=== PATIENT | female | born 1975 | race Caucasian/White ===

== ENCOUNTER → 2022-11-13 09:00 | Outpatient (BNV) | payer OTHER, SELFPAY | PROVIDERS: Visit Provider Psychiatry & Neurology Psychiatry | DX: F33.9 Major depressive disorder, recurrent, unspecified (principal) | CPT/HCPCS: 99212 ==

== ENCOUNTER 2022-11-17 08:30 | Outpatient (RCR) | payer OTHER, SELFPAY ==
--- NOTE | 2022-11-05 11:11 | PC.ADMIT ---
Patient is a 47 year old female who was referred to PHP by her prescriber Vickie George APRN d/t increased depression with passive SI (Patient denied plan or intent to kill herself) and increased anxiety. She reports having difficulty working at this time d/t her symptoms. She reports she works with her brother in law who is flexible with her work hours which have been reduced while she is struggling with depressive sxs. Patient given a copy of her safety plan if needed and I reviewed the plan with her. Patient's medications reconciled with patient and patient's pharmacy. she reports taking medications as prescribed.
[2022-11-05 11:24] VITALS: BP 119/85; PULSE 60; TEMP 36.8
[2022-11-05 11:25] VITALS: BMI 25.1
--- NOTE | 2022-11-05 14:59 | HO.PHP ---
Clients case was reviewed and opened today in treatment team.
--- NOTE | 2022-11-05 21:04 | HO.PS.ADMBH ---
HPI Date of Service: 11/05/22 Chief Complaint: MDD Sources of Information: patient interviewed, chart reviewed and crisis/core team assessment reviewed Additional Sources of Information: 47 yo single woman referred by outpatient provider (HUBERT George ) for treatmetn of depression, passive SI, snf shoulder pain and history of body dysmorphia HPI Healthcare Proxy: No Guardianship: No Medical Problems Affecting Mental Status: Yes Narrative: shoulder pain with recent surgery and many medical appt over last 2-3 years; struggling to cope with chronic pain; depression worsening over past few months and increased focus on somatic complaints. recent SI trila of wellbutrin but worsened agitation. Past Psychiatric History: Pt finished TMS finished TMS 05/19/2019; started seeing Lakesha Garza for therapy and sees weekly. History of depression and with SI - Tomás Sanders. Center 01/16-01/22 2019 [facility] PHP - 3 weeks tx At age 28, serious suicide attempt in 2006 had a small amount of alcohol and came home and took wellbutrin and celexa- felt lonely, has chronic suicidal ideation Was off meds for a while but In 2016 mother passed from abdominal aortic aneurysm 73 years old. and pt has been struggling again since then Pt went to se PCP 2018 - started with Prozaneela (on for months) Saw psychiatrist at [facility] - added Mariely Has been dealing with depression since age 20, chronic SI since 20, never felt comfortable in own skin; History of over-dose on Wellbutrin and celexa in 2006 took 250 pills -had seizures and vomiting fell and brother heard her fall. adm [facility] for input psych age 20 shoulder impingement surgery 2022 [facility] Medical History (Updated 11/05/22 @ 21:11 by Brittany George APRN) Degenerative disc disease, cervical Surgical History (Updated 11/05/22 @ 10:32 by Giovanna Benites RN) History of discectomy Family History: supportive siblings, very involved; mother 2016 Social History: lives alone, works as bookeeper Substance History: none Trauma History: none known Diagnostics Vital Signs (24Hr): Vital Signs - 24 hr 11/05/22 11:24 Temperature 98.2 F Pulse Rate 60 Blood Pressure 119/85 BMI result Body Mass Index 25.1 Meds/Allergies Meds Home Medications Medication Instructions Recorded Confirmed Type cholecalciferol (vitamin D3) 25 25 mcg PO DAILY 11/05/22 11/05/22 History mcg (1,000 unit) capsule (Vitamin D3) hydrocodone 10 mg-acetaminophen 1 tab PO BID PRN Pain 11/05/22 11/05/22 History 325 mg tablet lamotrigine 200 mg tablet 200 mg PO DAILY 11/05/22 11/05/22 History mirtazapine 7.5 mg tablet 3.75 - 7.5 mg PO BEDTIME PRN 11/05/22 11/05/22 History Insomnia sertraline 100 mg tablet 200 mg PO DAILY 11/05/22 11/05/22 History brexpiprazole 0.25 mg tablet 0.25 mg PO DAILY 11/13/22 11/13/22 History (Rexulti) Allergies Allergies Allergy/AdvReac Type Severity Reaction Status Date / Time No Known Allergies Allergy Verified 11/09/22 09:10 [No Known Allergies*] Mental Status Exam Mental Status Exam Patient Appearance: Well Grooomed and Appropriate Patient Orientation: Person, Place, Time and Situation Level of Consciousness: Awake Patient Behavior: Appropriate and Anxious Mood Description: Anxious and Sad Affect Description: Anxious and Sad Patient Cognition Impaired: No Ability to Follow Directions: Excellent Speech Pattern: Clear, Appropriate and Coherent Memory Description: Intact Hallucinations: None Delusions: Not Present Thought Process: Distracted and Goal Oriented Thought Content: positive for Goal Oriented and positive for Hypochondriasis (possible chronic pain in shoulder part of body dysmorphia symptoms- pain unrelenting despite many medical interventions) Depressive Symptoms: Increased Anxiety, Diff. Making Decisions, Muscle Tension, Difficulty Sleeping, Muscle Pain, Crying Spells, Feelings of Worthlessness, Feelings of Guilt, Unhappiness, Thoughts of /Suicide, Low Self Esteem, Loss of Energy and Difficulty Concentrating Judgement: Fair Telehealth Telehealth Location of provider rendering services: other Location of patient: other ([facility] ) Patient Identification confirmed using: Name, : Yes Telehealth method: video Patient verbally consented to treatment: Yes Patient verbally consented to billing insurance company: Yes Patient informed of any privacy concerns related to visit: Yes Minutes spent on Phone/Video with Pt.: 30 Assessment & Plan Assessment & Plan (1) Major depressive disorder, recurrent episode with anxious distress: Status: Acute Code(s): F33.9 - Major depressive disorder, recurrent, unspecified Assessment and Plan: 47 yo single woman with hsitory of depression, body dysmorphia, and suicide attempt in 2017 Plan: admit to [facility]' group treatmetn per protocol add rexulti 0.25 mg daily (2) Body dysmorphic disorder: Status: Acute Code(s): F45.22 - Body dysmorphic disorder Plan 47 yo single woman with history of depression, body dimorphic syndrome, and suicide attempt in 2016 Plan: admit to ' group treatment per protocol add rexulti 0.25 mg daily pt would benefit from learning coping skills to manage emotions, increase social support and may need new therpaist as her current therapist nearing skilled nursing Patient educated on: diagnosis, medication risk/benefits and therapeutic strategies Informed Consent: understands and further education needed Reason for continued partial hosp. stay Substantial Risk for: harm to self, inability to function and rapid decompensation Certification I certify that partial hospital treatment is medically necessary due to the symptoms and problems resulting from the patient's mental illness and the failure to treat the patient at the partial hospital level of care would likely result in the patient requiring inpatient psychiatric care which could not be prevented at a less intensive level of care. Time Spent With Patient Time: Total time managing care of this patient today __55__ minutes.
--- NOTE | 2022-11-09 15:16 | HO.PHP ---
[facility] staff reached out to Leeanne's OP therapist, David Garza, and left a VM informing her that Leeanne has been actively engaged in groups and utilizing the program appropriately. [facility] staff informed David of Leeanne's tenative discharge date which is November 18, 2022. [facility] staff encouraged David to reach out if she has any further questions.
--- NOTE | 2022-11-13 12:08 | HO.PHPPROGNO ---
Subjective Subjective Date of Service: 11/13/22 Reason For Visit: MDD Healthcare Proxy: No Guardianship: No Medical Problems Affecting Mental Status: Yes (Chronic pain) Interim History: Leeanne is seen for follow-up as part of her partial hospital program. She has been dealing with chronic depression since age 20 but recently, in the past 2 years she has been dealing with chronic pain in her left shoulder with 2 surgeries on cervical discs with no improvement. She has a hard time dealing with chronic pain and has been having negative thinking and that is what led to coming to the partial program. She denies any current active suicidal ideations but has had has been a serious overdose in 2005. She does have a prescriber and therapist whom she follows through with on a regular basis. Currently she is on Lamictal 200 mg daily and Zoloft 200 mg daily with moderate benefits. Recently her prescriber ordered Rexulti as an adjunctive medication but she was informed that it costs 150 dollars which she is not sure whether she wants to do or not. She is also learning about ketamine. No complaints or side effects with her current medications. No changes were made Medication Compliance: Yes Side effects from medications: No Attending Groups: Yes Review of Systems Review of Systems Except for chronic shoulder pain Yes all other systems are reviewed and are negative Mental Status Exam Mental Status Exam Narrative: In today's visit she is alert, oriented and pleasant. Normal speech. Good eye contact. Affect is appropriate and varied. No signs of psychosis. No active suicidal or homicidal ideations. She does have some negative thinking in relation to her chronic pain. Cognitively is intact. Judgment is intact Diagnostics Vital Signs (24Hr): BMI result Body Mass Index 25.1 Assessment & Plan Assessment & Plan (1) Major depressive disorder, recurrent episode with anxious distress: Status: Acute Code(s): F33.9 - Major depressive disorder, recurrent, unspecified Plan Continue current to medications. She will pursue adjunctive options with her prescriber Patient educated on: diagnosis and medication risk/benefits Certification I certify that partial hospital treatment is medically necessary due to the symptoms and problems resulting from the patient's mental illness and the failure to treat the patient at the partial hospital level of care would likely result in the patient requiring inpatient psychiatric care which could not be prevented at a less intensive level of care. Total time managing care of this patient today ____ minutes. Discharge Plan Discharge Attending provider: Forrest Sprague Medications: No Action lamotrigine 200 mg tablet 200 mg PO DAILY Rx Instructions: Patient takes at HS. sertraline 100 mg tablet 200 mg PO DAILY Rx Instructions: Patient takes at HS. hydrocodone-acetaminophen 10-325 mg Tablet 1 tab PO BID PRN (Reason: Pain) cholecalciferol (vitamin D3) [Vitamin D3] 25 mcg (1,000 unit) Capsule 25 mcg PO DAILY mirtazapine 7.5 mg tablet 3.75 - 7.5 mg PO BEDTIME PRN (Reason: Insomnia) Rx Instructions: Take 1/2 to 1 tab Q HS PRN Rexulti 0.25 mg Tablet 0.25 mg PO DAILY Stand Alone Forms: Patient Portal Discharge page
--- NOTE | 2022-11-16 14:30 | HO.PHP ---
Leeanne explored with [facility] staff if she could switch to half days. PHP staff informed her that she would have to see if her insurance company accepts half days. Leeanne was receptive. [facility] staff followed up with Leeanne and informed her that her insurance does not allow for half days and assessed why she was seeking that. Leeanne noted feeling stressed out with things she has to take care of outside of the program and feels as though she has gotten everything she needs at this time. Leeanne asked if she could discontinue services tomorrow 11/17/2022 opposed to 11/18/2022. [facility] staff asked Leeanne if she felt she was able to access everything she came to the program for. Leeanne disclosed that she did and informed her that she can continue with her OP therapist and psychiatrist. [facility] staff was receptive and asked Leeanne if she was able to find another OP therapist that will focus on BDD. Leeanne mentioned she hasn't and noted that she doesn't need a referral for that at this time was just seeking out resources of providers in the area. [facility] staff was receptive and informed her that she will provided her with individuals who take her insurance so she has those resources to contact when ready. Leeanne was in agreement. [facility] staff provided Leeanne with the resources 30 minutes later.
--- NOTE | 2022-11-17 11:35 | HO.PHPPROGNO ---
Subjective Subjective Date of Service: 11/17/22 Reason For Visit: MDD Healthcare Proxy: No Guardianship: No Medical Problems Affecting Mental Status: No Interim History: Leeanne is seen today for follow-up. I had seen her on 11/13. Today is her last day of treatment at [facility]. She states that she is doing much better, has gained some more tools to cope and has more of a positive perspective on things. She continues on her Zoloft and Lamictal but because of the expense she did not fill the prescription for Rexulti. She will see Vickie Rousseau who is her outside provider next week. She is also interested in pursuing possible ketamine treatment. No complaints or side effects. No SI. Medication Compliance: Yes Review of Systems Review of Systems Shoulder pain/ L Yes all other systems are reviewed and are negative Mental Status Exam Mental Status Exam Narrative: In today's visit she is alert, oriented and pleasant. Normal speech. Good eye contact. Affect is appropriate and varied. No signs of psychosis. No active suicidal or homicidal ideations. She does have some negative thinking in relation to her chronic pain. Cognitively is intact. Judgment is intact Diagnostics Vital Signs (24Hr): BMI result Body Mass Index 25.1 Assessment & Plan Assessment & Plan (1) Major depressive disorder, recurrent episode with anxious distress: Status: Acute Code(s): F33.9 - Major depressive disorder, recurrent, unspecified Plan Continue current regimen of Zoloft and Lamictal. Patient is discharging today Patient educated on: diagnosis and medication risk/benefits Certification I certify that partial hospital treatment is medically necessary due to the symptoms and problems resulting from the patient's mental illness and the failure to treat the patient at the partial hospital level of care would likely result in the patient requiring inpatient psychiatric care which could not be prevented at a less intensive level of care. Total time managing care of this patient today ____ minutes. Discharge Plan Discharge Attending provider: Forrest Sprague Medications: No Action lamotrigine 200 mg tablet 200 mg PO DAILY Rx Instructions: Patient takes at HS. sertraline 100 mg tablet 200 mg PO DAILY Rx Instructions: Patient takes at HS. hydrocodone-acetaminophen 10-325 mg Tablet 1 tab PO BID PRN (Reason: Pain) cholecalciferol (vitamin D3) [Vitamin D3] 25 mcg (1,000 unit) Capsule 25 mcg PO DAILY mirtazapine 7.5 mg tablet 3.75 - 7.5 mg PO BEDTIME PRN (Reason: Insomnia) Rx Instructions: Take 1/2 to 1 tab Q HS PRN Rexulti 0.25 mg Tablet 0.25 mg PO DAILY Stand Alone Forms: Patient Portal Discharge page Patient Education: Depression (DC)
== END 2022-11-17 23:59 | disposition home or self-care (01) ==
LOC: HO.PHPA 08:30
PROVIDERS: Visit Provider Psychiatry & Neurology Psychiatry
DX: F33.9 Major depressive disorder, recurrent, unspecified (principal); F45.22 Body dysmorphic disorder
CPT/HCPCS: 90791; 90853

== ENCOUNTER → 2022-11-17 08:30 | Outpatient (BNV) | payer OTHER, SELFPAY | PROVIDERS: Visit Provider Psychiatry & Neurology Psychiatry | DX: F33.9 Major depressive disorder, recurrent, unspecified (principal); F45.22 Body dysmorphic disorder | CPT/HCPCS: 90792 ==

== ENCOUNTER 2023-06-29 12:59 | Outpatient (AMB) | payer OTHER, SELFPAY ==
--- NOTE | 2023-06-29 13:05 | A.OFFPSYCH_ITS ---
Intake Vital Signs 06/29/23 13:05 Height 55 ft Weight 152 lb Intake Visit Reasons: depression Intake Note: Patient is here for follow-up for depression. She tapered herself off the Cymbalta in April and May due to worry that it was causing palpitations. She now believes that the palpitations were from perimenopause she is also having some sleep disruption mild irritability the week before her. Irregular menstruation. She has discussed this with her primary care physician. She restarted Zoloft and is taking Zoloft 50 mg. She has tolerated the Zoloft in the past up to 200 mg we had switched to Cymbalta due to chronic pain in her shoulder she does not feel that the Cymbalta helped with the pain. She feels her mood was better on the Zoloft. she continues to take Lamictal 200 mg daily. She reports improvement in mood and energy. she is socializing more; she continues to have anxiety and worry; no suicidal ideation. no HI. She is more optimistic about the future. She is looking for a new therapist who can meet with her person as her current therapist is unable to do in-person therapy. T Produce Inspector Required: No Allergies No Known Allergies [No Known Allergies*] Allergy (Verified 11/09/22 09:10) Medication List - Last Reconciled 06/30/23 by Brittany George APRN cholecalciferol (vitamin D3) (Vitamin D3) 25 mcg PO DAILY lamotrigine 200 mg PO DAILY sertraline 200 mg PO DAILY HPI- Psychiatric Chief Complaint: depression Intake Note: tapered off cymbalta due to palpitaitons - took last dose in mid May- saw her PCP -had EKG and it was normal. Pt report possibilly entering marco menapause- headache, palpitations, irritable, crying easily, minor hot flashes. Saw PCP in May. Started back on Zoloft 50mg daily last week. Taking Lamictal. Finished ketamine Jan through April twice a week for four weeks then weekly for a month. Space patient does not feel that ketamine was helpful she states she felt like she had some minor dissociation which made her anxiety worse. HPI Narrative: Patient had been seeing this repairer typewriter in private practice for last several years and has transferred to see me here at the [facility]. She recently had ketamine treatment at [facility] and psychedelics therapy in [facility]. She currently sees Lakesha Zamudio for therapy but is searching for a therapist who can see her in person. Past Psychiatric History: Pt finished TMS finished TMS 05/19/2019; started seeing Lakesha Garza for therapy and sees weekly. History of depression and with SI - Tomás Sanders. Center 01/16-01/22 2019 [facility] PHP - 3 weeks tx At age 28, serious suicide attempt in 2005 had a small amount of alcohol and came home and took wellbutrin and celexa- felt lonely, has chronic suicidal ideation Was off meds for a while but In 2016 mother passed from abdominal aortic aneurysm 73 years old. and pt has been struggling again since then Pt went to se PCP 2018 - started with Prozac (on for months) Saw psychiatrist at [facility] - added Rosa Mariafarheensharon Has been dealing with depression since age 20, chronic SI since 20, never felt comfortable in own skin; History of over-dose on Wellbutrin and celexa in 2005 took 250 pills -had seizures and vomiting fell and brother heard her fall. adm [facility] for input psych age 20 Subjective Subjective Subjective Medication Compliance: Yes Side effects from medications: No Review of Systems Medical Review of Systems: unchanged Review of Systems Review of Systems Constitutional: Denies fever. Skin: Denies rash. Eye: Denies eye pain. ENMT: Denies sore throat and nasal congestion. Respiratory: Denies shortness of breath and cough. Gastrointestinal: Denies nausea, vomiting or abdominal pain. Cardiovascular: Denies chest pain and syncope. Genitourinary: Denies dysuria. Musculoskeletal: Denies back pain; reports slight left shoulder pain n. Neurologic: Denies headaches, confusion, and weakness. Psychiatric: Denies suicidal thoughts and substance abuse. Allergy/ Immunologic: Impaired immunity. Mental Status Exam Mental Status Exam Patient Appearance: Well Grooomed and Appropriate Patient Orientation: Person, Place, Time and Situation Level of Consciousness: Awake and Appropriate Patient Behavior: Appropriate Mood Description: Happy and Anxious Affect Description: Happy and Anxious Ability to Follow Directions: Good Speech Pattern: Clear Memory Description: Intact Hallucinations: None Delusions: Not Present Thought Process: Intact and Goal Oriented Thought Content: positive for Intact Judgement: Good Judgement and Insight: insight and judgment good Assessment and Plan Assessment & Plan (1) Body dysmorphic disorder: Status: Acute Code(s): F45.22 - Body dysmorphic disorder (2) Major depressive disorder, recurrent episode with anxious distress: Status: Acute Code(s): F33.9 - Major depressive disorder, recurrent, unspecified Plan Patient is a 48-year-old woman with a history of depression and body dysmorphic syndrome presenting for follow-up medication management. Plan Continue the sertraline 50 mg increase it to 100 mg daily times 10 days then increase to 150 daily for 10 days then increase to 200 mg daily Continue Lamictal 200 mg daily return in 1 month Patient given information regarding a therapist with openings Bety Meier in [facility] and patient verbalizes she will follow-up Medications: New sertraline Patient takes at HS. 200 mg (2 x 100 mg) PO DAILY 60 tabs 2RF Counseling and coordination of Care Pt. Self Management counseling: Light exposure, Sleep hygiene, General coping skills and Problem solving Medication management counseling: Effectiveness, Side effects, Dosing range, Duration, Drug interaction and Adherence Diagnosis and Prognosis Counseling: Accuracy of diagnosis and Impact of diagnosis on life functions Details: I spent 40 minutes reviewing the record, seeing the patient and documenting in the medical record. Counseling provided to the patient/caregiver as outlined below. Addressed patient/caregiver concerns regarding current medication regime including effective adherence. Addressed patient/caregiver concerns regarding diagnosis and prognosis including accuracy of diagnosis, prognosis over time, impact of diagnosis. Addressed patient/caregiver concerns regarding impact of recent stressors. [facility] Medical History (Updated 06/30/23 @ 13:09 by Brittany George APRN) Somatic delusion Degenerative disc disease, cervical Surgical History History of discectomy Social History Household Members: None Patient Tobacco Use Status: Current someday Tobacco user Tobacco use type: Cigarette Social History: lives alone, works as bookeeper Substance History: none Trauma History: none known Coding Level of Care Code Est Pt Level 4 (56047) Diagnoses Body dysmorphic disorder F45.22 Major depressive disorder, recurrent episode with anxious distress F33.9 Time Spent (min) 40
== END 2023-06-29 13:41 | disposition home or self-care (01) ==
LOC: HO.HOP 12:59
PROVIDERS: PCP Nurse Practitioner Family; Visit Provider Clinical Nurse Specialist Psychiatric/Mental Health
DX: F45.22 Body dysmorphic disorder (principal); F33.9 Major depressive disorder, recurrent, unspecified
CPT/HCPCS: 99215

== ENCOUNTER → 2023-06-29 12:59 | Outpatient (BNVA) | payer OTHER, SELFPAY | PROVIDERS: PCP Nurse Practitioner Family; Visit Provider Clinical Nurse Specialist Psychiatric/Mental Health ==

== ENCOUNTER 2023-08-03 11:02 | Outpatient (AMB) | payer OTHER, SELFPAY ==
--- NOTE | 2023-08-03 13:37 | MHC.OFFVISPS ---
Intake Intake Visit Reasons: depression Cad Intern Required: No Allergies No Known Allergies [No Known Allergies*] Allergy (Verified 11/09/22 09:10) Medication List - Last Reconciled 08/03/23 by Brittany George APRN cholecalciferol (vitamin D3) (Vitamin D3) 25 mcg PO DAILY duloxetine (Cymbalta) 60 mg PO DAILY lamotrigine 200 mg PO DAILY HPI- Psychiatric Chief Complaint: depression HPI Narrative: pt tapered off cymbalta due to palpitations but she is on zoloft and still has palpitations- pt mood and anxiety worse on zoloft. -She is taking Zoloft 50mg daily last week. Taking Lamictal. Finished ketamine Jan through April 2023 - twice a week for four weeks then weekly for a month. Patient reports anxiety worse and she is often tremulous; low appetite. Not wanting to get out of bed most mornings; low energy; low enjoyment; pt reports significant conflict with 2 siblings. she is withdrawing from family events. Pt continues with therapy but worried her therapist will be retiring soon. pt denies current SI or HI HPI Narrative: Patient had been seeing this production underwriter in private practice for last several years and has transferred to see me here at the [facility]. She recently had ketamine treatment at [facility] and psychedelics therapy in [facility]. She currently sees Lakesha Zamudio for therapy but is searching for a therapist who can see her in person. Past Psychiatric History: Pt finished TMS finished TMS 05/19/2019; started seeing Lakesha Garza for therapy and sees weekly. Past Psychiatric History: Pt finished TMS finished TMS 05/19/2019; started seeing Lakesha Garza for therapy and sees weekly. History of depression and with SI - Tomás Sanders. Center 01/16-01/22 2019 [facility] PHP - 3 weeks tx At age 28, serious suicide attempt in 2006 had a small amount of alcohol and came home and took wellbutrin and celexa- felt lonely, has chronic suicidal ideation Was off meds for a while but In 2016 mother passed from abdominal aortic aneurysm 73 years old. and pt has been struggling again since then Pt went to PCP 2018 - started with Prozac (on for months) Saw psychiatrist at [facility] - latrell Schuster Has been dealing with depression since age 20, chronic SI since 20, never felt comfortable in own skin; History of over-dose on Wellbutrin and celexa in 2006 took 250 pills -had seizures and vomiting fell and brother heard her fall. adm [facility] for input psych age 20 Subjective Subjective Subjective Medication Compliance: Yes Side effects from medications: No Review of Systems Medical Review of Systems: unchanged Mental Status Exam Mental Status Exam Patient Appearance: Well Grooomed and Appropriate Patient Orientation: Person, Place, Time and Situation Level of Consciousness: Awake and Alert Patient Behavior: Appropriate and Anxious (slight hand tremor) Mood Description: Anxious and Sad Affect Description: Anxious and Sad Patient Cognition Impaired: No Ability to Follow Directions: Good Speech Pattern: Clear and Perseverating Memory Description: Intact Hallucinations: None Delusions: Not Present Thought Process: Rumination and Goal Oriented Thought Content: positive for Intact and positive for Preoccupation Judgement: Fair Results Reviewed Results Reviewed: EKG noraml sinus QTC 428 CBC -no anemia chem profile- CL slightly low at 109 Anion gap 10 bun 7 FBS 90 TSH 2.48 AST 20 ALT 18 Assessment and Plan Assessment & Plan (1) Palpitations: Status: Acute Code(s): R00.2 - Palpitations (2) Body dysmorphic disorder: Status: Acute Code(s): F45.22 - Body dysmorphic disorder (3) Major depressive disorder, recurrent episode with anxious distress: Status: Acute Code(s): F33.9 - Major depressive disorder, recurrent, unspecified (4) Other mcc (current) drug therapy: Status: Acute Code(s): Z79.899 - Other watermelon harvesting supervisor (current) drug therapy (5) LANNY (generalized anxiety disorder): Status: Acute Code(s): F41.1 - Generalized anxiety disorder Plan 48 yo with significant depression and anxioety, presenting with tremor and complaint of palpitations. low BUN could be from decrease PO intake. other labs essentially normal; ekg normal sinus and QTC 428 plan EKG to rule out medical etiology to palpitations and prior to starting cymbalta CBC, CMP due to reports of fatigue, palpitations low energy and tremor stop zoloft start cymbalta 60 mg daily return in 2-4 weeks consider TMS tx Medications: Discontinued sertraline Patient takes at HS. Discontinued Reason: Duplicate 200 mg (2 x 100 mg) PO DAILY 60 tabs 2RF Orders: Orders ECG 12 lead EKG Today R00.2 - Palpitations, Z79.899 - Other mcc (current) drug therapy Complete Blood Count Auto Diff Today F33.9 - Major depressive disorder, recurrent, unspecified, Z79.899 - Other watermelon harvesting supervisor (current) drug therapy Comprehensive [place]. Panel Fast Today Z79.899 - Other mcc (current) drug therapy TSH reflex Free T4 Today F33.9 - Major depressive disorder, recurrent, unspecified Counseling and coordination of Care Pt. Self Management counseling: Exercise, Light exposure, Maintenance-social rhythm, Sleep hygiene and Behavior activation Medication management counseling: Effectiveness, Side effects and Dosing range Diagnosis and Prognosis Counseling: Accuracy of diagnosis, Prognosis over time, Impact of diagnosis on life functions, Impact of family relationship, Problematic behaviors secondary to diagnosis and Adequacy of current interventions Details: I spent 45 minutes reviewing the record, seeing the patient and documenting in the medical record. Counseling provided to the patient/caregiver as outlined below. Addressed patient/caregiver concerns regarding current medication regime including effective adherence. Addressed patient/caregiver concerns regarding diagnosis and prognosis including accuracy of diagnosis, prognosis over time, impact of diagnosis. Addressed patient/caregiver concerns regarding impact of recent stressors. [facility] Medical History (Updated 08/03/23 @ 13:58 by Brittany George APRN) Somatic delusion Degenerative disc disease, cervical Surgical History History of discectomy Social History Household Members: None Patient Tobacco Use Status: Current someday Tobacco user Tobacco use type: Cigarette Social History: lives alone, works as bookeeper Substance History: none Trauma History: none known Coding Level of Care Code Est Pt Level 5 (62976) Diagnoses Palpitations R00.2 Body dysmorphic disorder F45.22 Major depressive disorder, recurrent episode with anxious distress F33.9 Other mcc (current) drug therapy Z79.899 LANNY (generalized anxiety disorder) F41.1
== END 2023-08-03 12:04 | disposition home or self-care (01) ==
LOC: HO.HOP 11:02
PROVIDERS: PCP Nurse Practitioner Family; Visit Provider Clinical Nurse Specialist Psychiatric/Mental Health
DX: F33.1 Major depressive disorder, recurrent, moderate (principal); F45.22 Body dysmorphic disorder; R00.2 Palpitations; Z79.899 Other long term (current) drug therapy; F41.1 Generalized anxiety disorder
CPT/HCPCS: 99215

== ENCOUNTER 2023-08-03 11:02 | Outpatient (REF) | payer OTHER, SELFPAY ==
--- NOTE | 2023-08-03 11:51 | ECG_ITS ---
Test Reason : R00.2 Blood Pressure : / mmHG Vent. Rate : 075 BPM Atrial Rate : 075 BPM P-R Int : 138 ms QRS Dur : 086 ms QT Int : 384 ms P-R-T Axes : 023 054 043 degrees QTc Int : 428 ms Normal sinus rhythm Normal ECG No previous ECGs available Referred By: Brittany George Electronically Signed By:HARSHA MARCUM MD
[2023-08-03 12:08] LABS: MANUAL DIFF FLAG NO
[2023-08-03 12:28] LABS: Basophils Absolute Auto 0.1 X10*3/uL (0.0-0.2); Basophils Percent Auto 0.5 % (0-2); Eosinophils Absolute Auto 0.1 X10*3/uL (0.0-0.4); Eosinophils Percent Auto 1.1 % (0-4); Hematocrit 40.7 % (37.0-47.0); Hemoglobin 13.7 g/dl (12.0-16.0); Imm Gran Abs Auto 0.07 X10*3/uL (0.00-0.03); Imm Gran Pct Auto 0.7 % (0.0-0.4); Lymphocytes Absolute Auto 2.3 X10*3/uL (1.2-4.9); Lymphocytes Percent Auto 21.4 % (20-40); Mean Corpuscular HGB Conc 33.7 g/dl (31.0-35.0); Mean Corpuscular Volume 86.2 fL (80.0-98.0); Mean Platelet Volume 9.7 fL (9.4-12.3); Monocytes Absolute Auto 0.7 X10*3/uL (0.1-1.2); Monocytes Percent Auto 6.6 % (2-11); Neutrophils Absolute Auto 7.4 x10*3/uL (2.0-8.3); Neutrophils Percent Auto 69.7 % (45-73); Platelet Count 354 X10*3/uL (160-400); Red Blood Count 4.72 X10*6/uL (4.20-5.50); Red Cell Distribution Width 12.9 % (11.0-16.0); White Blood Count 10.6 X10*3/uL (4.8-10.8)
[2023-08-03 13:49] LABS: Alanine Aminotransferase 18 U/L (0-31); Albumin Level 4.3 g/dL (3.5-5.0); Alkaline Phosphatase 92 U/L (39-117); Anion Gap 10 (12-20); Aspartate Amino Transferase 20 U/L (5-31); Bilirubin Total 0.3 mg/dL (0.0-1.0); Blood Urea Nitrogen 7 mg/dL (9-16); Calcium 9.4 mg/dL (8.4-10.2); Carbon Dioxide 24 mmol/L (22-29); Chloride 109 mmol/L (96-108); Estimated Glomerular Filt Rate > 60; Glucose Fasting 90 mg/dL (60-99); Potassium 4.1 mmol/L (3.3-5.1); Sodium 139 mmol/L (135-145); Total Protein 7.5 g/dL (6.5-8.0)
[2023-08-03 13:50] LABS: TSH reflex Free T4 2.48 uIU/mL (0.32-4.0)
== END 2023-08-03 11:03 | disposition home or self-care (01) ==
LOC: HO.LAB 11:02
PROVIDERS: PCP Nurse Practitioner Family; Visit Provider Clinical Nurse Specialist Psychiatric/Mental Health
DX: F33.9 Major depressive disorder, recurrent, unspecified (principal); R00.2 Palpitations; Z79.899 Other long term (current) drug therapy
CPT/HCPCS: 36415; 80053; 84443; 85025; 93005

== ENCOUNTER → 2023-08-03 11:51 | Outpatient (BNV) | payer OTHER, SELFPAY | PROVIDERS: PCP Nurse Practitioner Family; Visit Provider Internal Medicine Cardiovascular Disease | DX: R00.2 Palpitations (principal) | CPT/HCPCS: 93010 ==

== ENCOUNTER 2023-08-26 11:29 | Outpatient (AMB) | payer OTHER, SELFPAY ==
--- NOTE | 2023-08-26 11:23 | MHC.OFFVISPS ---
Intake Intake Visit Reasons: depression, Body dysmorphic disorder Intake Note: pt is here for follow up for depression and body dysmorphic disorder Supervisor Cell Room Required: No Allergies No Known Allergies [No Known Allergies*] Allergy (Verified 11/09/22 09:10) Medication List - Last Reconciled 08/26/23 by Brittany George APRN cholecalciferol (vitamin D3) (Vitamin D3) 25 mcg PO DAILY duloxetine (Cymbalta) 60 mg PO DAILY lamotrigine 200 mg PO DAILY HPI- Psychiatric Chief Complaint: depression, Body dysmorphic disorder HPI Narrative: pt much better with cymbalta 60 mg daily; she is taking at night due to feeling it made her tired during the day. continues with lamictal 200mg daily. pt mood much improved. energy better; more motivation. enjoying activites; planning social activities; got an extra one day a week job and enjoys it. 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 she is more hopeful. she is till very anxious at times. She struggles with self esteem and is very critical of self. she continues with therapy every other week with David Zamudio. Pt denies SI or HI. Pt denies medical changes. pt offers n complaints of body discomfort or pain. Past Psychiatric History: Pt finished Esketamine treatment April 2023. TMS finished TMS 05/19/2019; started seeing Lakesha Garza for therapy and sees weekly. History of depression and with SI - Tomás Sanders. Center 01/16-01/22 2019 [facility] PHP - 3 weeks tx At age 28, serious suicide attempt in 2005 had a small amount of alcohol and came home and took wellbutrin and celexa- felt lonely, has chronic suicidal ideation Was off meds for a while but In 2016 mother passed from abdominal aortic aneurysm 73 years old. and pt has been struggling again since then Pt went to PCP 2018 - started with Prozaneela (on for months) Saw psychiatrist at [facility] - latrell cShuster Has been dealing with depression since age 20, chronic SI since 20, never felt comfortable in own skin; History of over-dose on Wellbutrin and celexa in 2006 took 250 pills -had seizures and vomiting fell and brother heard her fall. adm [facility] for input psych age 20 Subjective Subjective Subjective Medication Compliance: Yes Side effects from medications: No Review of Systems Medical Review of Systems: unchanged Review of Systems Review of Systems Yes all other systems are reviewed and are negative Mental Status Exam Mental Status Exam Patient Appearance: Well Grooomed and Appropriate Patient Orientation: Person Level of Consciousness: Awake Patient Behavior: Appropriate and Cooperative Mood Description: Happy and Anxious Affect Description: Happy and Anxious Patient Cognition Impaired: No Ability to Follow Directions: Good Speech Pattern: Clear, Spontaneous Speech and Coherent Memory Description: Intact Hallucinations: None Delusions: Not Present Thought Process: Intact and Goal Oriented Thought Content: positive for Intact and positive for Goal Oriented Judgement: Good Results Reviewed Results Reviewed: lab work and ekg reviewed with pt Assessment and Plan Assessment & Plan (1) Body dysmorphic disorder: Status: Acute Code(s): F45.22 - Body dysmorphic disorder (2) Major depressive disorder, recurrent episode with anxious distress: Status: Acute Code(s): F33.9 - Major depressive disorder, recurrent, unspecified (3) LANNY (generalized anxiety disorder): Status: Acute Code(s): F41.1 - Generalized anxiety disorder Plan continue cymbalta 60 mg daily lamictal 200mg daily return in one month Counseling and coordination of Care Pt. Self Management counseling: Maintenance-social rhythm, Mod caffeine/ETOH intake, Nutrition education and improvement, Behavior activation and General coping skills Medication management counseling: Effectiveness, Side effects, Dosing range, Duration, Drug interaction and Adherence Diagnosis and Prognosis Counseling: Accuracy of diagnosis, Prognosis over time, Impact of diagnosis on life functions, Impact of family relationship, Problematic behaviors secondary to diagnosis and Adequacy of current interventions Details: I spent 30 minutes reviewing the record, seeing the patient and documenting in the medical record. Counseling provided to the patient/caregiver as outlined below. Addressed patient/caregiver concerns regarding current medication regime including effective adherence. Addressed patient/caregiver concerns regarding diagnosis and prognosis including accuracy of diagnosis, prognosis over time, impact of diagnosis. Addressed patient/caregiver concerns regarding impact of recent stressors. [facility] Medical History (Updated 08/03/23 @ 13:58 by Brittany George APRN) Somatic delusion Degenerative disc disease, cervical Surgical History History of discectomy Social History Household Members: None Patient Tobacco Use Status: Current someday Tobacco user Tobacco use type: Cigarette Social History: lives alone, works as bookeeper Substance History: none Trauma History: none known Coding Level of Care Code Est Pt Level 4 (97669) Diagnoses Body dysmorphic disorder F45.22 Major depressive disorder, recurrent episode with anxious distress F33.9 LANNY (generalized anxiety disorder) F41.1
== END 2023-08-26 12:09 | disposition home or self-care (01) ==
LOC: HO.HOP 11:29
PROVIDERS: PCP Nurse Practitioner Family; Visit Provider Clinical Nurse Specialist Psychiatric/Mental Health
DX: F45.22 Body dysmorphic disorder (principal); F33.9 Major depressive disorder, recurrent, unspecified; F41.1 Generalized anxiety disorder
CPT/HCPCS: 99214

== ENCOUNTER → 2023-08-26 11:29 | Outpatient (BNVA) | payer OTHER, SELFPAY | PROVIDERS: PCP Nurse Practitioner Family; Visit Provider Clinical Nurse Specialist Psychiatric/Mental Health ==

== ENCOUNTER 2023-09-24 11:31 | Outpatient (AMB) | payer OTHER, SELFPAY ==
--- NOTE | 2023-09-24 11:46 | MHC.OFFVISPS ---
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 no intent or plan. no body pain. looking forward to vacation with sister; pt wants to quit smoking. Past Psychiatric History: Pt finished Esketamine treatment April 2023. TMS finished TMS 05/19/2019; started seeing Lakesha Garza for therapy and sees weekly. History of depression and with SI - Tomás Sanders. Center 01/16-01/22 2019 [facility] PHP - 3 weeks tx At age 28, serious suicide attempt in 2005 had a small amount of alcohol and came home and took wellbutrin and celexa- felt lonely, has chronic suicidal ideation Was off meds for a while but In 2016 mother passed from abdominal aortic aneurysm 73 years old. and pt has been struggling again since then Pt went to PCP 2018 - started with Prozac (on for months) Saw psychiatrist at [facility] - latrell Rosa Mariamini Has been dealing with depression since age 20, chronic SI since 20, never felt comfortable in own skin; History of over-dose on Wellbutrin and celexa in 2006 took 250 pills -had seizures and vomiting fell and brother heard her fall. adm [facility] for input psych age 20 Subjective Subjective Subjective Medication Compliance: Yes Side effects from medications: No Review of Systems Medical Review of Systems: unchanged Mental Status Exam Mental Status Exam Patient Appearance: Well Grooomed and Appropriate Patient Orientation: Person, Place, Time and Situation Level of Consciousness: Awake and Appropriate Patient Behavior: Appropriate Mood Description: Happy and Anxious Affect Description: Happy and Anxious Patient Cognition Impaired: No Ability to Follow Directions: Good Speech Pattern: Clear Memory Description: Intact Hallucinations: None Delusions: Not Present Thought Process: Intact Thought Content: positive for Intact and positive for Goal Oriented Judgement: Good Assessment and Plan Assessment & Plan (1) Major depressive disorder, recurrent episode with anxious distress: Status: Acute Code(s): F33.9 - Major depressive disorder, recurrent, unspecified (2) LANNY (generalized anxiety disorder): Status: Acute Code(s): F41.1 - Generalized anxiety disorder (3) Body dysmorphic disorder: Status: Acute Code(s): F45.22 - Body dysmorphic disorder Plan discussed options for smoking cessation; wellbutrin helped in past and tolerated until increased to 300mg and it caused agitation. retrun in 4 weeks Medications: New bupropion HCl SR (Wellbutrin SR) 100 mg PO DAILY 30 tabs 1RF Refilled lamotrigine Patient takes at HS. 200 mg PO DAILY 90 tabs 1RF duloxetine (Cymbalta) 60 mg PO DAILY 30 caps 2RF Counseling and coordination of Care Pt. Self Management counseling: Mod caffeine/ETOH intake, Sleep hygiene and Behavior activation Medication management counseling: Effectiveness, Side effects, Dosing range, Duration, Drug interaction and Adherence Diagnosis and Prognosis Counseling: Accuracy of diagnosis, Prognosis over time, Impact of diagnosis on life functions, Impact of family relationship, Problematic behaviors secondary to diagnosis and Adequacy of current interventions Details: I spent [] minutes reviewing the record, seeing the patient and documenting in the medical record. Counseling provided to the patient/caregiver as outlined below. Addressed patient/caregiver concerns regarding current medication regime including effective adherence. Addressed patient/caregiver concerns regarding diagnosis and prognosis including accuracy of diagnosis, prognosis over time, impact of diagnosis. Addressed patient/caregiver concerns regarding impact of recent stressors. [facility] Medical History (Updated 08/03/23 @ 13:58 by Brittany George APRN) Somatic delusion Degenerative disc disease, cervical Surgical History History of discectomy Social History Household Members: None Patient Tobacco Use Status: Current someday Tobacco user Tobacco use type: Cigarette Social History: lives alone, works as bookeeper Substance History: none Trauma History: none known Coding Level of Care Code Est Pt Level 4 (65118) Diagnoses Major depressive disorder, recurrent episode with anxious distress F33.9 LANNY (generalized anxiety disorder) F41.1 Body dysmorphic disorder F45.22
== END 2023-09-24 12:17 | disposition home or self-care (01) ==
LOC: HO.HOP 11:31
PROVIDERS: PCP Nurse Practitioner Family; Visit Provider Clinical Nurse Specialist Psychiatric/Mental Health
DX: F33.9 Major depressive disorder, recurrent, unspecified (principal); F41.1 Generalized anxiety disorder; F45.22 Body dysmorphic disorder
CPT/HCPCS: 99214

== ENCOUNTER → 2023-09-24 11:31 | Outpatient (BNVA) | payer OTHER, SELFPAY | PROVIDERS: PCP Nurse Practitioner Family; Visit Provider Clinical Nurse Specialist Psychiatric/Mental Health ==

== ENCOUNTER 2023-11-12 12:59 | Outpatient (AMB) | payer OTHER, SELFPAY ==
--- NOTE | 2023-11-12 13:05 | A.OFFPSYCH_ITS ---
Intake Intake Visit Reasons: depression Wet Cotton Feeder Required: No Allergies No Known Allergies [No Known Allergies*] Allergy (Verified 11/09/22 09:10) Medication List - Last Reconciled 11/12/23 by Brittany George APRN bupropion HCl SR (Wellbutrin SR) 100 mg PO DAILY cholecalciferol (vitamin D3) (Vitamin D3) 25 mcg PO DAILY duloxetine (Cymbalta) 60 mg PO DAILY lamotrigine 200 mg PO DAILY HPI- Psychiatric Chief Complaint: depression Intake Note: pt mood and anxiety overall improved. she reports some palpitations like she had last April- EKG were normal. pt had palpitations intermittently on and off the cymbalta- unlikely the cause. she will discuss with PCP. Pt went on to talk about how social anxiety and body dysmorphia symptoms have interfered with her ability to date and have social connections especially with men which she would like; she feels lonely; she regrets lost opportunities; we discussed that therapy can help with the body dysmorphia and social anxiety but that we can utilize medications as well to reduce the anxiety and intrusive thoughts; she denies SI or HI. she did not start the wellbutrin due to palpitations and will hold off on starting now. HPI Narrative: see above Past Psychiatric History: Pt finished Esketamine treatment April 2023. TMS finished TMS 05/19/2019; started seeing Lakesha Garza for therapy and sees weekly. History of depression and with SI - Tomás Sanders. Center 01/16-01/22 2019 [facility] PHP - 3 weeks tx At age 28, serious suicide attempt in 2005 had a small amount of alcohol and came home and took wellbutrin and celexa- felt lonely, has chronic suicidal ideation Was off meds for a while but In 2016 mother passed from abdominal aortic aneurysm 73 years old. and pt has been struggling again since then Pt went to se PCP 2018 - started with Desi (on for months) Saw psychiatrist at [facility] - added Jamidanish Has been dealing with depression since age 20, chronic SI since 20, never felt comfortable in own skin; History of over-dose on Wellbutrin and celexa in 2006 took 250 pills -had seizures and vomiting fell and brother heard her fall. adm [facility] for input psych age 20 Subjective Subjective Subjective Medication Compliance: Yes Side effects from medications: No Review of Systems Medical Review of Systems: unchanged Mental Status Exam Mental Status Exam Patient Appearance: Well Grooomed and Appropriate Patient Orientation: Person, Place, Time and Situation Level of Consciousness: Awake and Appropriate Patient Behavior: Appropriate and Cooperative Mood Description: Anxious Affect Description: Anxious Patient Cognition Impaired: No Ability to Follow Directions: Good Speech Pattern: Clear and Appropriate Memory Description: Intact Hallucinations: None Delusions: Not Present Thought Process: Intact and Rumination (intrusive negative thoughts about self intermittently ) Thought Content: positive for Intact and positive for Obsessional Thoughts (intrusive negative thoughts about self ) Judgement: Good Assessment and Plan Assessment & Plan (1) Major depressive disorder, recurrent episode with anxious distress: Status: Acute Code(s): F33.9 - Major depressive disorder, recurrent, unspecified (2) LANNY (generalized anxiety disorder): Status: Acute Code(s): F41.1 - Generalized anxiety disorder (3) Body dysmorphic disorder: Status: Acute Code(s): F45.22 - Body dysmorphic disorder (4) Social anxiety disorder: Status: Acute Code(s): F40.10 - Social phobia, unspecified Plan continue cymbalta 60mg daily lamictal 200mg daily start latuda 40mg qam for intrusive thoughts hold wellbutrin follow up with pcp re palpitations Medications: New lurasidone must administer with food (at least 350 calories) 40 mg PO DAILY 30 tabs 1RF On Hold bupropion HCl SR (Wellbutrin SR) Hold Comment: Doctor's Order 100 mg PO DAILY 30 tabs 1RF Counseling and coordination of Care Pt. Self Management counseling: Maintenance-social rhythm, Mindfulness, Sleep hygiene and Behavior activation Details-Self Mgmt counseling: use of affirmations Medication management counseling: Effectiveness, Side effects, Dosing range, Duration, Drug interaction and Adherence Diagnosis and Prognosis Counseling: Accuracy of diagnosis, Prognosis over time, Impact of diagnosis on life functions and Adequacy of current interventions Details: I spent 50 minutes reviewing the record, seeing the patient and documenting in the medical record. Counseling provided to the patient/caregiver as outlined below. Addressed patient/caregiver concerns regarding current medication regime including effective adherence. Addressed patient/caregiver concerns regarding diagnosis and prognosis including accuracy of diagnosis, prognosis over time, impact of diagnosis. Addressed patient/caregiver concerns regarding impact of recent stressors. [facility] Medical History (Updated 11/12/23 @ 14:41 by Brittany George APRN) Somatic delusion Degenerative disc disease, cervical Surgical History History of discectomy Social History Household Members: None Patient Tobacco Use Status: Current someday Tobacco user Tobacco use type: Cigarette Social History: lives alone, works as bookeeper Substance History: none Trauma History: none known Coding Level of Care Code Est Pt Level 5 (07692) Diagnoses Major depressive disorder, recurrent episode with anxious distress F33.9 LANNY (generalized anxiety disorder) F41.1 Body dysmorphic disorder F45.22 Social anxiety disorder F40.10
== END 2023-11-12 15:24 | disposition home or self-care (01) ==
LOC: HO.HOP 12:59
PROVIDERS: PCP Nurse Practitioner Family; Visit Provider Clinical Nurse Specialist Psychiatric/Mental Health
DX: F33.9 Major depressive disorder, recurrent, unspecified (principal); F41.1 Generalized anxiety disorder; F45.22 Body dysmorphic disorder; F40.10 Social phobia, unspecified
CPT/HCPCS: 99215

== ENCOUNTER → 2023-11-12 12:59 | Outpatient (BNVA) | payer OTHER, SELFPAY | PROVIDERS: PCP Nurse Practitioner Family; Visit Provider Clinical Nurse Specialist Psychiatric/Mental Health ==

== ENCOUNTER 2023-12-10 13:09 | Outpatient (AMB) | payer OTHER, SELFPAY ==
--- NOTE | 2023-12-10 13:12 | MHC.OFFVISPS ---
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 Allergies No Known Allergies [No Known Allergies*] Allergy (Verified 11/09/22 09:10) Medication List - Last Reconciled 12/10/23 by Brittany George APRN bupropion HCl SR (Wellbutrin SR) 100 mg PO DAILY cholecalciferol (vitamin D3) (Vitamin D3) 25 mcg PO DAILY duloxetine (Cymbalta) 60 mg PO DAILY lamotrigine 200 mg PO DAILY lurasidone 40 mg PO DAILY HPI- Psychiatric Chief Complaint: depression HPI Narrative: pt much improved with additioon of latuda; she found it made her tired for first 2 weeks but now is better; mood improved; less negative thinking; more at ease; more able to be social; no SI or HI. anxiety reduced. Past Psychiatric History: Pt finished Esketamine treatment April 2023. TMS finished TMS 05/19/2019; started seeing Lakesha Garza for therapy and sees weekly. History of depression and with SI - Tomás Sanders. Center 01/16-01/22 2019 [facility] PHP - 3 weeks tx At age 28, serious suicide attempt in 2005 had a small amount of alcohol and came home and took wellbutrin and celexa- felt lonely, has chronic suicidal ideation Was off meds for a while but In 2016 mother passed from abdominal aortic aneurysm 73 years old. and pt has been struggling again since then Pt went to PCP 2018 - started with Prozac (on for months) Saw psychiatrist at [facility] - added Mariely Has been dealing with depression since age 20, chronic SI since 20, never felt comfortable in own skin; History of over-dose on Wellbutrin and celexa in 2006 took 250 pills -had seizures and vomiting fell and brother heard her fall. adm [facility] for input psych age 20 Subjective Subjective Subjective Medication Compliance: Yes Side effects from medications: No Review of Systems Medical Review of Systems: unchanged Mental Status Exam Mental Status Exam Patient Appearance: Well Grooomed and Appropriate Patient Orientation: Person, Place, Time and Situation Level of Consciousness: Awake Patient Behavior: Appropriate Mood Description: Calm and Happy Affect Description: Calm and Happy Patient Cognition Impaired: No Ability to Follow Directions: Good Memory Description: Intact Hallucinations: None Delusions: Not Present Thought Process: Intact Thought Content: positive for Intact Judgement: Good Assessment and Plan Assessment & Plan (1) Social anxiety disorder: Status: Acute Code(s): F40.10 - Social phobia, unspecified (2) Major depressive disorder, recurrent episode with anxious distress: Status: Acute Code(s): F33.9 - Major depressive disorder, recurrent, unspecified (3) LANNY (generalized anxiety disorder): Status: Acute Code(s): F41.1 - Generalized anxiety disorder (4) Body dysmorphic disorder: Status: Acute Code(s): F45.22 - Body dysmorphic disorder Medications: Refilled duloxetine (Cymbalta) 60 mg PO DAILY 30 caps 2RF lurasidone must administer with food (at least 350 calories) 40 mg PO DAILY 30 tabs 1RF lamotrigine Patient takes at HS. 200 mg PO DAILY 90 tabs 1RF Discontinued bupropion HCl SR (Wellbutrin SR) Discontinued Reason: Doctor's Order 100 mg PO DAILY 30 tabs 1RF Counseling and coordination of Care Pt. Self Management counseling: Maintenance-social rhythm, Sleep hygiene, Cognitive restructuring and General coping skills Medication management counseling: Effectiveness, Side effects, Dosing range, Duration, Drug interaction and Adherence Diagnosis and Prognosis Counseling: Accuracy of diagnosis, Prognosis over time, Impact of diagnosis on life functions, Impact of family relationship, Problematic behaviors secondary to diagnosis and Adequacy of current interventions Details: I spent 45 minutes reviewing the record, seeing the patient and documenting in the medical record. Counseling provided to the patient/caregiver as outlined below. Addressed patient/caregiver concerns regarding current medication regime including effective adherence. Addressed patient/caregiver concerns regarding diagnosis and prognosis including accuracy of diagnosis, prognosis over time, impact of diagnosis. Addressed patient/caregiver concerns regarding impact of recent stressors. [facility] Medical History (Updated 11/12/23 @ 14:41 by Brittany George APRN) Somatic delusion Degenerative disc disease, cervical Surgical History History of discectomy Social History Household Members: None Patient Tobacco Use Status: Current someday Tobacco user Tobacco use type: Cigarette Social History: lives alone, works as bookeeper Substance History: none Trauma History: none known Coding Level of Care Code Est Pt Level 4 (32842) Therapy 30m w/E&M (98637) Diagnoses Social anxiety disorder F40.10 Major depressive disorder, recurrent episode with anxious distress F33.9 LANNY (generalized anxiety disorder) F41.1 Body dysmorphic disorder F45.22
== END 2023-12-10 13:39 | disposition home or self-care (01) ==
LOC: HO.HOP 13:09
PROVIDERS: PCP Nurse Practitioner Family; Visit Provider Clinical Nurse Specialist Psychiatric/Mental Health
DX: F40.10 Social phobia, unspecified (principal); F33.9 Major depressive disorder, recurrent, unspecified; F41.1 Generalized anxiety disorder; F45.22 Body dysmorphic disorder
CPT/HCPCS: 90833; 99214

== ENCOUNTER → 2023-12-10 13:09 | Outpatient (BNVA) | payer OTHER, SELFPAY | PROVIDERS: PCP Nurse Practitioner Family; Visit Provider Clinical Nurse Specialist Psychiatric/Mental Health ==

== ENCOUNTER 2024-01-14 09:55 | Outpatient (AMB) | payer OTHER, SELFPAY ==
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
== END 2024-01-14 10:16 | disposition home or self-care (01) ==
LOC: HO.HOP 09:55
PROVIDERS: PCP Nurse Practitioner Family; Visit Provider Clinical Nurse Specialist Psychiatric/Mental Health
DX: F40.10 Social phobia, unspecified (principal); F33.9 Major depressive disorder, recurrent, unspecified; F41.1 Generalized anxiety disorder; F45.22 Body dysmorphic disorder
CPT/HCPCS: 99214

== ENCOUNTER → 2024-01-14 09:55 | Outpatient (BNVA) | payer OTHER, SELFPAY | PROVIDERS: PCP Nurse Practitioner Family; Visit Provider Clinical Nurse Specialist Psychiatric/Mental Health ==

== ENCOUNTER → 2024-02-18 09:52 | Outpatient (BNVA) | payer OTHER, SELFPAY | PROVIDERS: PCP Nurse Practitioner Family; Visit Provider Clinical Nurse Specialist Psychiatric/Mental Health ==

== ENCOUNTER 2024-02-18 09:54 | Outpatient (AMB) | payer OTHER, SELFPAY ==
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
== END 2024-02-18 10:44 | disposition home or self-care (01) ==
PROVIDERS: PCP Nurse Practitioner Family; Visit Provider Clinical Nurse Specialist Psychiatric/Mental Health
DX: F40.10 Social phobia, unspecified (principal); F33.9 Major depressive disorder, recurrent, unspecified; F45.22 Body dysmorphic disorder
CPT/HCPCS: 90833; 99214

== ENCOUNTER 2024-04-07 09:48 | Outpatient (AMB) | payer OTHER, SELFPAY ==
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
== END 2024-04-07 11:41 | disposition home or self-care (01) ==
LOC: HO.HOP 09:49
PROVIDERS: PCP Nurse Practitioner Family; Visit Provider Clinical Nurse Specialist Psychiatric/Mental Health
DX: F40.10 Social phobia, unspecified (principal); F33.9 Major depressive disorder, recurrent, unspecified; F41.1 Generalized anxiety disorder; F45.22 Body dysmorphic disorder
CPT/HCPCS: 99214

== ENCOUNTER 2024-06-27 13:56 | Outpatient (AMB) | payer OTHER, SELFPAY ==
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
== END 2024-06-27 14:33 | disposition home or self-care (01) ==
LOC: HO.HOP 13:56
PROVIDERS: Visit Provider Clinical Nurse Specialist Psychiatric/Mental Health
DX: F40.10 Social phobia, unspecified (principal); F41.1 Generalized anxiety disorder; F33.9 Major depressive disorder, recurrent, unspecified; F45.22 Body dysmorphic disorder
CPT/HCPCS: 99214

== ENCOUNTER → 2024-06-27 13:56 | Outpatient (BNVA) | payer OTHER, SELFPAY | PROVIDERS: Visit Provider Clinical Nurse Specialist Psychiatric/Mental Health ==

== ENCOUNTER 2024-09-04 10:36 | Outpatient (AMB) | payer OTHER, SELFPAY ==
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
== END 2024-09-04 11:14 | disposition home or self-care (01) ==
LOC: HO.HOP 10:36
PROVIDERS: Visit Provider Clinical Nurse Specialist Psychiatric/Mental Health
DX: F40.10 Social phobia, unspecified (principal); F33.9 Major depressive disorder, recurrent, unspecified; F41.1 Generalized anxiety disorder; F45.22 Body dysmorphic disorder
CPT/HCPCS: 99214

== ENCOUNTER 2024-12-04 12:00 | Outpatient (AMB) | payer OTHER, SELFPAY ==
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
--- OUTSIDE RECORDS SUMMARY | 2024-12-04 12:43 | XMS_ITS | Encounter Summary ---
Author Organization [facility] Address [address] [place] [phone] Phone Care Team Providers Care Railroad Maintenance Clerk Name Role Phone Floridalma Marques NP Primary Care Provider [phone] Reason for Referral * Physical Therapy (Within 1 month) - Closed Specialty Diagnoses / Procedures Referred By Kailey briseno Referred To Contact Physical Therapy Monse Koch PA-C, MPH Phone: tel: fax: [email or web address] [address] [place] [address] Phone: tel: Referral ID Status Reason Start Date Expiration Date Visits Re quested Visits Authorized [id number] Closed 09/04/2022 05/02/2023 60 60 Encounter Details Date Type Department Care Team (Late st Contact Info) Description 09/04/2022 Transcribe Orders [facility] [address] [place] [address] Monse Koch PA-C, MPH [address] [place] [id number] Social History Tobacco Use Types Packs/Day Years Used Date Smoking Tobacco: Former Smokeless Tobacco: Never Alcohol Use Standard Drinks/Week Comments Never 0 (1 standard drink = 0.6 oz pur e alcohol) Education Answer Date Recorded Are you interested in more education? Not on janette e 08/28/2022 Are you concerned about learning? Not on file 08/28/2022 No 08/28/2022 No 08/28/2022 Comments No Sex and Gender Information Value Date Recorded Sex Assigned at Female 09/01/2020 3:02 PM EDT Legal Sex Female 9:25 PM EDT Gender Identity Female 09/01/2020 3:02 PM EDT Sexual Orientation Straight 01/09/2022 2: 38 PM EDT documented as of this encounter Plan of Treatment Not on file documented as of this encounter Procedures Procedure Name Priority Date/Time Associated Diagnosis Comments AMB REFERRAL TO [facility]ICAL [facility] Routine 09/29/2022 7:19 PM EDT documented in this encounter Results * Ambulatory referral to [facility] Physical Therapy (09/29/2022 7:19 PM EDT) Other us Monse Koch PA-C, MPH AMB [facility] REFERRALS Fi nal Result documented in this encounter Visit Diagnoses Not on filedocumented in this encounter Care Teams Railroad Maintenance Clerk Relationship Specialty Start Date End Date Floridalma Marques NP [address] [place] [address] PCP - General Family Medicine 06/17/20 documented as of this encounter Additional Source Comments The information contained in this document represents components of the legal health record. It is not the complete legal health record.[facility]
== END 2024-12-04 12:00 | disposition home or self-care (01) ==
LOC: HO.HOP 12:00
PROVIDERS: Visit Provider Clinical Nurse Specialist Psychiatric/Mental Health
DX: F40.10 Social phobia, unspecified (principal); F33.9 Major depressive disorder, recurrent, unspecified; F41.1 Generalized anxiety disorder; F45.22 Body dysmorphic disorder
CPT/HCPCS: 99214